=== PATIENT | female | born 1965 | race Asian ===

== ENCOUNTER 2024-09-17 14:47 | Emergency (ER) | payer OTHER ==
[~2024-09-17] VITALS: Ht 160 cm; Wt 71.4 kg
[~2024-09-17 14:47] MED LIST: AMLO-258 PO; LOSA-417 PO; METF-1211 PO
[2024-09-17 14:55] VITALS: BP 158/77; PULSE 78; RESP 18; TEMP 97.8; O2SAT 100
[2024-09-17 15:10] LABS: GLUCOMETER DEV NAME(LOC) ER.7; GLUCOSE,POINT OF CARE 188 MG/DL (70-110)
== END 2024-09-17 15:10 | disposition home or self-care (01) ==
LOC: EMS 14:47
DX: E11.9 Type 2 diabetes mellitus without complications (principal); F17.210 Nicotine dependence, cigarettes, uncomplicated; Z76.0 Encounter for issue of repeat prescription; Z72.89 Other problems related to lifestyle; Z79.899 Other long term (current) drug therapy
CPT/HCPCS: 82962; 99283

== ENCOUNTER 2024-10-17 04:05 | Emergency (ER) | payer OTHER ==
[~2024-10-17] VITALS: Ht 160 cm; Wt 71.4 kg
[2024-10-17 04:25] VITALS: TEMP 97.505240
[2024-10-17 04:53] LABS: BASOPHILS % (AUTO) 0.6 % (0.0-2.0); HEMATOCRIT 41.9 % (36-46); LYMPHOCYTES # (AUTO) 2.6 K/uL (1.0-4.8); LYMPHOCYTES % (AUTO) 41.1 % (22.0-44.0); MEAN CORPUSCULAR HEMOGLOBIN 31.1 pg (26.0-34.0); MEAN CORPUSCULAR HGB CONC 33.5 G/dL (31.0-37.0); MEAN CORPUSCULAR VOLUME 93 fL (80-100); MONOCYTES # (AUTO) 0.5 K/uL (0.1-1.0); MONOCYTES % (AUTO) 7.2 % (2.0-9.0); NEUTROPHILS # (AUTO) 3.1 K/uL (1.8-7.7); NEUTROPHILS % (AUTO) 49.1 % (40.0-70.0); PLATELET COUNT (AUTO) 279 K/uL (150-450); RED BLOOD CELL COUNT(AUTO) 4.52 MIL/uL (4.00-5.20); RED CELL DISTRIBUTION WIDTH 13.9 % (11.5-14.5); WHITE BLOOD COUNT (AUTO) 6.3 K/uL (4.5-11.0)
[2024-10-17 05:04] LABS: ANION GAP 4 mmol/L (8-16); CALCIUM, TOTAL 9.3 mg/dL (8.8-10.5); CARBON DIOXIDE 32 mmol/L (22-29); CHLORIDE 101 mmol/L (98-107); CREATININE 0.91 mg/dL (0.60-1.30); GLOMERULAR FILTR. RATE CALC > 60 mL/min (>60); GLUCOSE,RANDOM 319 mg/dL (70-110); SODIUM SERUM 137 mmol/L (136-145); UREA NITROGEN, BLOOD 13 mg/dL (7-18)
[2024-10-17 05:08] LABS: ALBUMIN 3.4 g/dL (3.4-5.0); BILIRUBIN,DIRECT 0.1 mg/dL (0.00-0.20); BILIRUBIN,TOTAL 0.3 mg/dL (0.1-1.0); TOTAL PROTEIN, SERUM 7.9 g/dL (6.4-8.2)
[2024-10-17 05:12] LABS: TROPONIN I-HIGH SENSITIVITY 15 ng/L (<51)
[2024-10-17 05:40] VITALS: BP 179/92; PULSE 88; RESP 20; O2SAT 96
== END 2024-10-17 07:01 | disposition home or self-care (01) ==
LOC: EMS 04:06
DX: R10.9 Unspecified abdominal pain (principal); R19.7 Diarrhea, unspecified; E11.65 Type 2 diabetes mellitus with hyperglycemia; F41.9 Anxiety disorder, unspecified; F17.210 Nicotine dependence, cigarettes, uncomplicated; Z79.84 Long term (current) use of oral hypoglycemic drugs; Z79.899 Other long term (current) drug therapy
CPT/HCPCS: 80048; 80076; 83690; 84484; 85025; 93005; 99284